=== PATIENT | male | born 1950 | race Caucasian/White ===

== ENCOUNTER → 2020-05-14 | Outpatient (CLI) | payer OTHER | LOC: CAT 15:15 | PROVIDERS: ATTEND Family Medicine | DX: Z13.6 Encounter for screening for cardiovascular disorders (principal); I25.10 Atherosclerotic heart disease of native coronary artery without angina pectoris; E78.00 Pure hypercholesterolemia, unspecified ==

== ENCOUNTER → 2020-05-23 | Outpatient (CLI) | payer OTHER | LOC: SJCVC 10:07 | PROVIDERS: ATTEND Internal Medicine | DX: R00.1 Bradycardia, unspecified (principal); R93.1 Abnormal findings on diagnostic imaging of heart and coronary circulation; Z79.899 Other long term (current) drug therapy ==

== ENCOUNTER → 2021-05-21 | Outpatient (CLI) | payer OTHER | LOC: SJCVC 10:56 | PROVIDERS: ATTEND Internal Medicine | DX: R94.31 Abnormal electrocardiogram [ECG] [EKG] (principal); R93.1 Abnormal findings on diagnostic imaging of heart and coronary circulation; Z13.220 Encounter for screening for lipoid disorders; Z72.89 Other problems related to lifestyle; G47.33 Obstructive sleep apnea (adult) (pediatric); Z79.899 Other long term (current) drug therapy ==

== ENCOUNTER → 2021-06-11 | Outpatient (CLI) | payer OTHER | LOC: HYPER 07:39 | PROVIDERS: ATTEND Specialist | DX: S51.852A Open bite of left forearm, initial encounter (principal); S51.851A Open bite of right forearm, initial encounter; S41.151A Open bite of right upper arm, initial encounter; S41.152A Open bite of left upper arm, initial encounter; M19.90 Unspecified osteoarthritis, unspecified site; W54.0XXA Bitten by dog, initial encounter; Y93.89 Activity, other specified; Y92.89 Other specified places as the place of occurrence of the external cause; Y99.8 Other external cause status ==

== ENCOUNTER → 2021-06-25 | Outpatient (CLI) | payer OTHER | LOC: HYPER 07:36 | PROVIDERS: ATTEND Specialist | DX: S51.852D Open bite of left forearm, subsequent encounter (principal); S51.851D Open bite of right forearm, subsequent encounter; S41.151D Open bite of right upper arm, subsequent encounter; S41.152D Open bite of left upper arm, subsequent encounter; L98.492 Non-pressure chronic ulcer of skin of other sites with fat layer exposed; M19.90 Unspecified osteoarthritis, unspecified site; W54.0XXD Bitten by dog, subsequent encounter ==